=== PATIENT | female | born 1995 | race Caucasian/White ===

== ENCOUNTER 2020-08-02 10:53 | Emergency (ER) | payer BC ==
[~2020-08-02] VITALS: Ht 162.6 cm; Wt 137.4 kg
[2020-08-02 11:10] VITALS: Ht 162.6 cm; Wt 137.4 kg
[2020-08-02 11:41] LABS: CALCIUM 6.6 mg/dL (8.5-10.1); CARBON DIOXIDE 28.2 mmol/L (21-32); CHLORIDE SERUM 103 mmol/L (98-107); CREATININE SERUM 0.7 mg/dL (0.6-1.0); GFR1 > 60 mL/min; GLUCOSE SERUM 89 mg/dL (74-106); POTASSIUM SERUM 4.2 mmol/L (3.5-5.1); SODIUM SERUM 141 mmol/L (136-145)
[2020-08-02 11:46] LABS: ALBUMIN 3.6 g/dL (3.4-5.0); ALKALINE PHOSPHATASE 62 U/L (46-116); ALT/SGPT 44 U/L (14-59); AST/SGOT 35 U/L (15-37); BILIRUBIN TOTAL 0.4 mg/dL (0.20-1.00); TOTAL PROTEIN, SERUM 7.5 g/dL (6.4-8.2)
[2020-08-02 11:59] LABS: T3 TOTAL 1.45 ng/mL
[2020-08-02 12:41] LABS: FREE T4 2.23 ng/dL (0.76-1.46)
[2020-08-02 12:43] LABS: FREE THYROXINE INDEX 5.9 ug/dL (1.4-4.5); T4(THYROXINE) 16.3 ug/dL (4.7-13.3)
[2020-08-02 14:07] VITALS: BP 158/98
== END 2020-08-02 14:07 | disposition home or self-care (01) ==
LOC: ED 10:53
PROVIDERS: Emergency Medicine
DX: E83.51 Hypocalcemia (principal); R94.6 Abnormal results of thyroid function studies
CPT/HCPCS: 84439; J3490